=== PATIENT | female | born 1980 | race African-American/Black ===

== ENCOUNTER 2017-07-04 11:19 | Emergency (ER) | payer OTHER ==
[2017-07-04 12:03] VITALS: TEMP 97.8; BMI 48.2
--- NOTE | 2017-07-04 13:23 | PDOC ---
History of Present Illness - General Chief Complaint: CVA/TIA Stated Complaint: LT ARM NUMBNESS Time Seen by Provider: 07/04/17 12:45 History Source: Patient - History of Present Illness Associated Symptoms: denies: chest pain, headaches, nausea/vomiting, shortness of breath Past History - Past Medical History Allergies/Adverse Reactions: Allergies Allergy/AdvReac Type Severity Reaction Status Date / Time Sulfa (Sulfonamide Allergy Severe Swelling Verified 07/04/17 11:59 Antibiotics) Home Medications: Ambulatory Orders Albuterol Sulfate Inhaler - [Ventolin HFA Inhaler -] 2 inh PO PRN PRN 06/30/13 Hydrochlorothiazide 12.5 mg PO DAILY #30 tablet 07/04/17 Hydrochlorothiazide [Hctz -] 12.5 mg PO DAILY 07/04/17 Asthma: Yes Cancer: No Cardiac Disorders: No COPD: No DVT: No Diabetes: No HTN: No Seizures: Yes Thyroid Disease: No - Suicide/Smoking/Psychosocial Hx Smoking History: Never smoked Have you smoked in the past 12 months: No Hx Alcohol Use: No Drug/Substance Use Hx: No Substance Use Type: None Hx Substance Use Treatment: No Review of Systems - Review of Systems Constitutional: Yes: Fever Respiratory: No: Shortness of Breath Cardiac (ROS): No: Chest Pain ABD/GI: No: Nausea, Vomiting Neurological: Yes: Numbness. No: Headache, Paresthesia, Tingling, Weakness *Physical Exam - Vital Signs Last Vital Signs Temp Pulse Resp BP Pulse Ox 97.8 F 82 19 164/106 100 07/04/17 11:59 07/04/17 11:59 07/04/17 11:59 07/04/17 11:59 07/04/17 11:59 - Physical Exam General Appearance: Yes: Appropriately Dressed. No: Apparent Distress HEENT: positive: Normal Voice Neck: positive: Supple Respiratory/Chest: positive: Lungs Clear, Normal Breath Sounds. negative: Respiratory Distress Cardiovascular: positive: Regular Rate, S1, S2 Integumentary: positive: Dry, Warm Neurologic: positive: manager garden II-XII NML intact, Fully Oriented, Alert, Normal Mood/ Affect, Motor Strength 5/5, Finger to Nose. negative: Facial Droop, Sensory Deficit (no nystagmus, Sonya intact, no ataxia, no drift) ED Treatment Course - LABORATORY CBC & Chemistry Diagram: 07/04/17 14:02 07/04/17 14:02 - ADDITIONAL ORDERS Additional order review: Laboratory Results 07/04/17 12:55 Urine HCG, Qual Negative Medical Decision Making - Medical Decision Making 07/04/17 13:18 36-year-old morbidly obese female, history of hypertension, here with numbness to left upper extremity. Patient states for several weeks, has had intermittent numbness alternating w/ pain to entire left upper extremity. States pain worsens w/ certain movements of her neck, otherwise no neck pain or upper extremity weakness. Has been seen by her doctor and told possibly anxiety , which patient does not agree with. Decided to come to the ED now because today had some numbness of the left side of her lip and left lower leg that has since improved. Denies similar symptoms in the past. Denies headache, dizziness, visual changes, or focal weakness See exam Possibly LUE radiculopathy vs metabolic, unlikely CVA Well appearing, w/ elevated BP (non-compliant w/ meds) and no focal deficits on exam -labs -CT head -anticipate discharge w/ pmd f/u 07/04/17 16:[address] unremarkable. Patient remains well appearing w/ no change from initial exam. Will discharge w/ referral to neuro if sxs persist. Rpt BP improved. Refill of home meds given. Lengthy conversation had with patient regarding the importance of medication compliance to prevent complications from hypertension. Patient to follow up with PMD *DC/Admit/Observation/Transfer Diagnosis at time of Disposition: Numbness, Elevated blood pressure reading - Discharge Dispostion Disposition: HOME Condition at time of disposition: Good - Prescriptions Prescriptions: Hydrochlorothiazide 12.5 mg PO DAILY #30 tablet - Referrals Referrals: Laron Silva MD [Primary Care Provider] - Jan Bryson MD [Staff Physician] - - Patient Instructions Additional Instructions: The cause of your symptoms are unclear at this time, but your blood work and head CT were normal. Continue follow-up with your primary doctor and make appointment to see Dr. Bryson of neurology if symptoms persist - Post Discharge Activity
[2017-07-04] MEDS ORDERED: HYDROCHLOROTHIAZIDE 25 MG TABLET (FP) PO ONE (13:25)
[2017-07-04] MEDS ORDERED: HYDROCHLOROTHIAZIDE 25 MG TABLET (FP) ONE (13:39)
[2017-07-04 14:32] LABS: BASO % 0.9 % (0-2.0); EOS % 1.4 % (0-4.5); HEMOGLOBIN 9.8 GM/dL (10.7-15.3); MCH 25.3 pg (25.7-33.7); MCHC 31.6 g/dl (32.0-36.0); MEAN PLT VOLUME 9.2 fl (7.5-11.1); MONO % 7.2 % (3.8-10.2); NEUT % 59.5 % (42.8-82.8); PLATELET COUNT 183 K/MM3 (134-434); RBC 3.87 M/mm3 (3.60-5.2); RDW 16.6 % (11.6-15.6); WHITE BLOOD COUNT 5.5 K/mm3 (4.0-10.0)
[2017-07-04 15:00] LABS: ALBUMIN 3.5 g/dl (3.4-5.0); ALK PHOS 67 U/L (45-117); ANION GAP 8 (8-16); BILIRUBIN,TOTAL 0.3 mg/dL (0.2-1.0); BLOOD UREA NITROGEN 12 mg/dL (7-18); CALCIUM 8.9 mg/dL (8.5-10.1); CHLORIDE 105 mmol/L (98-107); CO2 29 mmol/L (21-32); CREATININE 0.6 mg/dL (0.55-1.02); GLUCOSE,RANDOM 88 mg/dL (74-106); POTASSIUM 4.3 mmol/L (3.5-5.1); SGOT/AST 18 U/L (15-37); SGPT/ALT 13 U/L (12-78); SODIUM 142 mmol/L (136-145); TOT PROT 7.5 g/dl (6.4-8.2)
[2017-07-04 16:28] VITALS: BP 150/93; PULSE 76
--- NOTE | 2017-07-04 16:46 | PDOC ---
*Physical Exam - Vital Signs Last Vital Signs Temp Pulse Resp BP Pulse Ox 97.8 F 76 18 150/93 98 07/04/17 11:59 07/04/17 16:28 07/04/17 16:28 07/04/17 16:28 07/04/17 16:28 ED Treatment Course - LABORATORY CBC & Chemistry Diagram: 07/04/17 14:02 07/04/17 14:02 - ADDITIONAL ORDERS Additional order review: Laboratory Results 07/04/17 07/04/17 07/04/17 14:02 14:02 12:55 Sodium 142 Potassium 4.3 Chloride 105 Carbon Dioxide 29 Anion Gap 8 BUN 12 Creatinine 0.6 Creat Clearance w eGFR > 60 Random Glucose 88 Calcium 8.9 Magnesium 2.3 Total Bilirubin 0.3 D AST 18 ALT 13 Alkaline Phosphatase 67 Total Protein 7.5 Albumin 3.5 Urine HCG, Qual Negative 07/04/17 14:02 RBC 3.87 MCV 80.0 MCHC 31.6 L RDW 16.6 H D MPV 9.2 Neutrophils % 59.5 Lymphocytes % 31.0 Monocytes % 7.2 Eosinophils % 1.4 Basophils % 0.9 - RADIOLOGY Radiology Studies Ordered: Category Date Time Status HEAD CT WITHOUT CONTRAST [CT] Stat CT Scan 07/04/17 13:26 Completed - Medications Given in the ED: ED Medications Discontinued Medications Generic Name Dose Route Start Last Admin Trade Name Chari PRN Reason Stop Dose Admin Hydrochlorothiazide 25 mg 07/04/17 13:25 07/04/17 13:41 Hctz - PO 07/04/17 13:26 25 mg ONCE ONE Administration *DC/Admit/Observation/Transfer Diagnosis at time of Disposition: Numbness, Elevated blood pressure reading - Discharge Dispostion Disposition: HOME Condition at time of disposition: Good - Prescriptions Prescriptions: Hydrochlorothiazide 12.5 mg PO DAILY #30 tablet - Referrals Referrals: Jan Bryson MD [Staff Physician] - Laron Silva MD [Primary Care Provider] - - Patient Instructions Additional Instructions: The cause of your symptoms are unclear at this time, but your blood work and head CT were normal. Continue follow-up with your primary doctor and make appointment to see Dr. Bryson of neurology if symptoms persist - Post Discharge Activity Forms/Work/School Notes: Back to Work
== END 2017-07-04 16:49 | disposition home or self-care (01) ==
LOC: JER 11:19
DX: R20.2 Paresthesia of skin (principal); I10 Essential (primary) hypertension; J45.909 Unspecified asthma, uncomplicated; Z86.69 Personal history of other diseases of the nervous system and sense organs
CPT/HCPCS: 36415; 70450-TC; 80053; 83735; 84703; 85025; 99284-25

== ENCOUNTER 2019-02-28 09:30 | Emergency (ER) | payer OTHER ==
[2019-02-28 09:37] VITALS: BMI 41.5
[2019-02-28] MEDS ORDERED: predniSONE 20 MG TABLET (UD) PO ONE (10:00)
[2019-02-28] MEDS ORDERED: HYDROCHLOROTHIAZIDE 25 MG TABLET (FP) PO ONE (10:09)
[2019-02-28] MEDS ORDERED: HYDROCHLOROTHIAZIDE 25 MG TABLET (FP) ONE (10:21)
[2019-02-28] MEDS ORDERED: ALBUTEROL SO4 2.5/IPRATROPIUM 0.5 INH SOL 3 ML VIAL.NEB. NEB ONE (10:21)
[2019-02-28] MEDS ORDERED: predniSONE 20 MG TABLET (UD) ONE (10:21)
[2019-02-28] MEDS: ALBUTEROL SO4 2.5/IPRATROPIUM 0.5 INH SOL 3 ML VIAL.NEB. NEB SCH ×3 (10:27→11:00)
--- NOTE | 2019-02-28 10:28 | PDOC ---
Documentation entered by Camille Borjas SCRIBE, acting as scribe for Jyoti Zayas MD. Jyoti Zayas MD: This documentation has been prepared by the Suad lu Xhesika, SCRIBE, under my direction and personally reviewed by me in its entirety. I confirm that the documentation accurately reflects all work, treatment, procedures, and medical decision making performed by me. History of Present Illness - General Chief Complaint: Chest Pain Stated Complaint: LOWER BACK PAIN/CHEST PAIN Time Seen by Provider: 02/28/19 09:47 History Source: Patient Exam Limitations: No Limitations - History of Present Illness Initial Comments: 02/28/19 10:04 The patient is a 38 year old female with a significant past medical history of asthma and HTN who presents to the ED with 2 weeks of persistent dry cough. Pt notes her asthma was acting up for the past couple of weeks, however, this morning while the patient was standing she felt a sudden onset of "deep" lower back pain and sharp chest pain. Pt notes her chest pain is non radiating and only occurs when taking deep breaths to cough. Patient notes she has been feeling congested at night and has been using her humidifier. Pt notes she has been using her flovent and albuterol pump (last use this morning) with no relief of symptoms. +second hand smoke exposure at her apartment. her children had been sick with URI sx recently, also has asthma. Denies fever, chills, SOB, palpitation, dizziness, weakness, N, V, D, abdominal pain, bladder and bowel problems, leg swelling, No sick contacts or travel. No new changes in medications. Allergies: Sulfa Past Medical History: asthma, HTN, and seizure Social history: Lives with family. No tobacco, ETOH or drug use. Surgical history: None reported Meds: as documented in EMR 02/28/19 10:27 Past History - Past Medical History Allergies/Adverse Reactions: Allergies Allergy/AdvReac Type Severity Reaction Status Date / Time Sulfa (Sulfonamide Allergy Severe Swelling Verified 02/28/19 09:37 Antibiotics) Home Medications: Ambulatory Orders Albuterol Sulfate Inhaler - [Ventolin HFA Inhaler -] 2 inh PO PRN PRN 06/30/13 Hydrochlorothiazide [Hctz -] 12.5 mg PO DAILY 07/04/17 Albuterol 0.083% Nebulizer Mae [Ventolin 0.083% Nebulizer Soln -] 1 neb NEB Q4H PRN #100 vial 02/28/19 Albuterol Sulfate Inhaler - [Ventolin HFA Inhaler -] 1 - 2 inh PO Q4H PRN #1 inhaler 02/28/19 Prednisone [Prednisone 50 MG TABLETS] 50 mg PO DAILY 4 Days #4 tablet 02/28/19 Asthma: Yes Cancer: No Cardiac Disorders: No COPD: No DVT: No Diabetes: No HTN: Yes (not compliant) Seizures: Yes Thyroid Disease: No Other medical history: obesity - Psycho Social/Smoking Cessation Hx Smoking History: Never smoked Have you smoked in the past 12 months: No Information on smoking cessation initiated: No Hx Alcohol Use: No Drug/Substance Use Hx: No Substance Use Type: None Hx Substance Use Treatment: No Review of Systems - Review of Systems Able to Perform ROS?: Yes Comments:: 02/28/19 10:06 Constitutional: no fevers or chills. No weakness HEENT: + congestion. no headache or dizziness. No visual/hearing disturbances. CVS: no cp or syncope. Resp: no sob. +cough. Gastrointestinal: no abdominal pain, nausea, vomiting, diarrhea. Genitourinary: no urinary sx, hematuria. MUSCULOSKELETAL: No joint pain and swelling. No neck. +lower back pain. +chest pain. SKIN: no redness or skin changes, no discharge, no rash. No wounds. Hematologic: no easy bruising/bleeding. NEUROLOGIC: No headache, dizziness, LOC or altered mental status. No weakness, numbness or tingling. Psych: no anxiety or depression Allergic/Immunologic: no allergies All other systems reviewed and negative, or as documented in HPI. *Physical Exam - Vital Signs Last Vital Signs Temp Pulse Resp BP Pulse Ox 98.1 F 78 19 195/105 H 99 02/28/19 09:34 02/28/19 09:34 02/28/19 09:34 02/28/19 09:34 02/28/19 09:34 - Physical Exam Comments: 02/28/19 10:08 General: Well appearing, awake and alert, NAD. HEENT: NCAT, PERRL, EOMI, clear conjunctiva, anicteric, moist mucus membranes, clear oropharynx, no oral lesions.. Neck: neck supple, FROM Resp: +persistent dry cough. CTAB, normal and even respirations, no respiratory distress CVS: RRR, no murmurs, 2+ peripheral pulses throughout, no peripheral edema Abdomen: soft, NTND, no rebound or guarding. No CVAT. Back: nontender, normal inspection and ROM MSK: no edema, PAREKH x4, ROM intact. No clubbing or cyanosis. normal bulk and tone. Extremities: no calf tenderness Neuro: alert, oriented appropriately; no focal neurologic deficits Psych: Calm and cooperative Skin: warm and well perfused, cap refill <2 sec, normal color Heart Score/ECG Review #1 ECG reviewed & interpreted by me at: 09:40 General ECG Interpretation: Normal Rate, Normal Intervals 02/28/19 10:26 EKG normal sinus rhythm, no interval abnormalities, narrow QRS, ST and T wave segments and morphology normal. Nonspecific T wave abnormalities ED Treatment Course - LABORATORY CBC & Chemistry Diagram: 02/28/19 10:10 02/28/19 10:10 - RADIOLOGY Radiology Studies Ordered: Category Date Time Status CHEST PA & LAT [RAD] Stat Radiology 02/28/19 09:49 Ordered Medical Decision Making - Medical Decision Making 02/28/19 10:24 Vital Signs Temp Pulse Resp BP Pulse Ox 98.1 F 78 19 195/105 H 99 02/28/19 09:34 02/28/19 09:34 02/28/19 09:34 02/28/19 09:34 02/28/19 09:34 VS reviewed, hypertensive - on repeat, BP closer to 140s/80 DDx chest pain: ACS, coronary vasospasm, NSTEMI, arrhythmia, unstable angina, PE , dissection, PUD, esophageal spasm, GERD, gastritis, costochondritis, pneumonia , pleurisy, pericarditis/myocarditis. dehydration, electrolyte/metabolic derangements. EKG is sinus rhythm at 65 bpm given duonebs, prednisone - reassess, has active coughing fits at the bedside lungs clear, no respiratory distress, speaking full sentences. well appearing otherwise no systemic findings labs and lytes wnl. anemia at baseline, not likely etiology of sx. d dimer_elevated - CTA to r/o PE. final CT results neg for PE, normal aorta, no acute lung disease noted, post gastric surgery, few diverticula. given hydrochlorothiazide here, did not take AM med rpt BP improved 159/100s - autoregulated, no symptoms, told to be compliant with antihypertensives. rx albuterol amps and inhaler use Q4-6 hour as needed for cough avoid triggers, second hand smoke and supportive care for the cough. Pt to be discharged in stable condition. Patient and family made aware of clinical impression, treatment recommendations and disposition plan, return precautions discussed (including but not limited to new or persistent/worsening symptoms, pain, fevers, or signs of infection, chest pain, respiratory distress , inability to tolerate oral intake, dehydration, syncope, or neurologic changes ). Follow up with PMD and/or sub specialist (pulm) as recommended, follow up information provided, take medications as instructed for duration of time. continue with supportive care, avoid triggers and precipitants. All questions answered to patient's satisfaction and expressed understanding and comfort with this. At the time of discharge, the patient is alert, clinically improved, tolerating po and verbalizes understanding of instructions, satisfied with the care received and felt comfortable with the plan. Patient does not suffer from an acute life-threatening medical condition at this time and is safe for outpatient follow-up. 02/28/19 15:09 Discharge - Discharge Information Problems reviewed: Yes Clinical Impression/Diagnosis: Bronchitis Asthma Qualifiers: Asthma severity: mild Asthma persistence: intermittent Asthma complication type : with acute exacerbation Qualified Code(s): J45.21 - Mild intermittent asthma with (acute) exacerbation Condition: Good Disposition: HOME - Admission No - Additional Discharge Information Prescriptions: Albuterol 0.083% Nebulizer Mae [Ventolin 0.083% Nebulizer Soln -] 1 neb NEB Q4H PRN #100 vial PRN Reason: Cough Albuterol Sulfate Inhaler - [Ventolin HFA Inhaler -] 1 - 2 inh PO Q4H PRN #1 inhaler PRN Reason: Cough Prednisone [Prednisone 50 MG TABLETS] 50 mg PO DAILY 4 Days #4 tablet - Follow up/Referral Referrals: [facility] [place] [facility] [Provider Group] [facility] [Provider Group] Vipul Whittaker MD [Staff Physician] - - Patient Discharge Instructions Patient Printed Discharge Instructions: DI for Asthma -- Adult, DI for Acute Bronchitis Additional Instructions: 1) Please follow-up with your primary care doctor in the next 1-2 days. Please call tomorrow for for any urgent issues. primary care doctor referrals given we have also provided a advanced manufacturing engineer Dr Whittaker for your asthma management. 2) You were given a copy of the tests performed today. Please bring the results with you and review them with your primary care doctor. Your laboratory / imaging results were normal, including your CT results negative for blood clot. 3) If you have any worsening of symptoms or any other concerns please return to the ED immediately. Return if worsening symptoms including fevers, headache, vomiting, visual or hearing disturbances, abdominal pain, chest pain, shortness of breath, syncope, dehydration, inability to take things by mouth/vomiting, altered mental status, or worsening concerning symptoms. 4) Please continue taking your home medications as directed. your medications on discharge include prednisone daily x 4 more days, start taking this tomorrow. side effects may include upset stomach, abdominal pain, vomiting, or diarrhea. do not drink alcohol with your medications. Stay well hydrated and rest adequately. Make an appointment. If you cannot follow-up with your primary care doctor please return to the ED salt water gargles, 1-2 spoonful of honey and warm lemon tea is appropriate as well for soothing qualities for sore throat/cough. minimize spread of infection given contagious nature, and cover your mouth and wash your hands adequately with soap and water. Stay well hydrated and rest. Cool air - walk around outdoors in the evening. May also try hot shower steam. This can alleviate the congestion and cough. May use the albuterol inhaler every 4-6 hours as needed for cough and breathing to clear up your airways. you can use either your nebulizer machine or the inhaler. - Post Discharge Activity Work/Back to School Note: Back to Work
[2019-02-28 11:01] LABS: BASO % 0.6 % (0-2.0); EOS % 0.9 % (0-4.5); HEMATOCRIT 31.8 % (32.4-45.2); LYMPH % 25.3 % (8-40); MCH 24.8 pg (25.7-33.7); MCHC 31.4 g/dl (32.0-36.0); MEAN CELL VOLUME 78.9 fl (80-96); MONO % 6.6 % (3.8-10.2); NEUT % 66.6 % (42.8-82.8); PLATELET COUNT 184 K/MM3 (134-434); RBC 4.02 M/mm3 (3.60-5.2); RDW 16.6 % (11.6-15.6); WHITE BLOOD COUNT 6.9 K/mm3 (4.0-10.0)
[2019-02-28 11:38] LABS: ANION GAP 3 MMOL/L (8-16); BLOOD UREA NITROGEN 14.6 mg/dL (7-18); CALCIUM 8.9 mg/dL (8.5-10.1); CHLORIDE 106 mmol/L (98-107); CO2 29 mmol/L (21-32); CREATININE 0.8 mg/dL (0.55-1.3); GLUCOSE,RANDOM 83 mg/dL (74-106); POTASSIUM 3.9 mmol/L (3.5-5.1); SODIUM 139 mmol/L (136-145)
--- NOTE | 2019-02-28 11:39 | EKG ---
Test Reason : Blood Pressure : / mmHG Vent. Rate : 065 BPM Atrial Rate : 065 BPM P-R Int : 144 ms QRS Dur : 090 ms QT Int : 402 ms P-R-T Axes : 043 054 045 degrees QTc Int : 418 ms NORMAL SINUS RHYTHM NORMAL ECG NO PREVIOUS ECGS AVAILABLE Confirmed by FRANSISCA MENDEZ, FRED ([id number]) on 02/28/2019 11:39:20 AM Referred By: Confirmed By:FRED GONGORA MD
[2019-02-28 15:10] VITALS: BP 152/102; PULSE 90; TEMP 97.9
== END 2019-02-28 13:05 | disposition home or self-care (01) ==
LOC: JER 09:30
PROC: 3E0F7GC Introduction of Other Therapeutic Substance into Respiratory Tract, Via Natural or Artificial Opening (ICD-10-PCS; principal; 2019-02-28)
DX: J45.21 Mild intermittent asthma with (acute) exacerbation (principal); I10 Essential (primary) hypertension; E66.9 Obesity, unspecified; Z68.41 Body mass index [BMI] 40.0-44.9, adult; Z86.69 Personal history of other diseases of the nervous system and sense organs; Z88.2 Allergy status to sulfonamides; Z77.22 Contact with and (suspected) exposure to environmental tobacco smoke (acute) (chronic)
CPT/HCPCS: 36415; 71275-TC; 80048; 84702; 84703; 85025; 85379; 93005; 93010; 94640; 99283-25